=== PATIENT | male | born 1935 | race Caucasian/White ===

== ENCOUNTER → 2017-01-29 | Outpatient (CLI) | payer OTHER ==
[~2017-01-29] MED LIST: ASPI325T39 PO
== END | disposition home or self-care (01) ==
LOC: C.RDSM 15:13
PROVIDERS: ATTEND Physical Medicine & Rehabilitation Sports Medicine
DX: M16.9 Osteoarthritis of hip, unspecified (principal)

== ENCOUNTER 2017-02-21 05:55 | Inpatient (IN) | payer OTHER ==
[2017-01-29 09:59] VITALS: BMI 27.0
--- NOTE | 2017-01-29 10:35 | PAT Medication Instructions ---
Service Date Jan 29, 2017. Current Home Medication List Aspirin (Aspirin Ec), 650 MG PO HS Medication Instructions For Your Scheduled Surgery - Contact your surgeon for instructions for: Aspirin (Aspirin Ec), 650 MG PO HS If you have any questions please call us at [phone] or [phone] or [phone]
[2017-01-29 11:37] LABS: BASO % 0.4 %; BASO ABS # 0.03 K/uL (0-0.2); COMPLETE YES; HEMATOCRIT 45.5 % (42-52); IG% 0.4 %; LYMPH % 31.1 %; LYMPH ABS # 2.63 K/uL (1.2-3.4); MEAN CELL VOLUME 93.8 fL (80-100); MEAN CORPUSCULAR HEMOGLOBIN 31.8 pg (25-34); MEAN CORPUSCULAR HGB CONC 33.8 g/dl (32-36); MEAN PLATELET VOLUME 9.8 fL (7.4-10.4); MONO % 11.7 %; NEUT % 54.4 %; PLATELET COUNT 264 K/uL (130-400); RED BLOOD COUNT 4.85 M/uL (4.7-6.1); WHITE BLOOD COUNT 8.45 K/uL (4.8-10.8)
--- NOTE | 2017-01-29 11:37 | DIAGNOSTIC IMAGING REPORT ---
CHEST PREADMISSION(PA/LAT) HISTORY: 81 years-old Male PAT preadmission exam. No acute chest complaints. COMPARISON: Chest radiograph 10/13/2015 TECHNIQUE: PA and lateral views of the chest FINDINGS: Cardiac silhouette is mildly enlarged. There is atherosclerosis of the aorta. No pneumothorax or large pleural effusion identified. Patchy bibasilar opacities with blunting of the costophrenic angle redemonstrated suggesting atelectasis with pulmonary hyperinflation. Moderate-sized hiatal hernia with partially intrathoracic stomach redemonstrated. Bones are grossly intact. IMPRESSION: 1. Hyperinflation with bibasilar subsegmental atelectasis or scarring redemonstrated. No acute cardiopulmonary process. 2. Moderate sized hiatal hernia with partially intrathoracic stomach. The above report was generated using voice recognition software. It may contain grammatical, syntax or spelling errors. Electronically signed by: Neil Arnold M.D. 01/29/2017 11:36 AM Dictated Date/Time: 01/29/2017 11:34 AM
[2017-01-29 11:50] LABS: BUN/CREATININE RATIO 26.3 (10-20); CALCIUM 8.7 mg/dl (8.5-10.1); CREATININE 1.1 mg/dl (0.60-1.40); POTASSIUM 4.5 mmol/L (3.5-5.1)
[2017-01-29 11:51] LABS: URINE APPEARANCE CLEAR (CLEAR); URINE BILIRUBIN NEG (NEG); URINE COLOR YELLOW; URINE NITRITE NEG (NEG); URINE SPECIFIC GRAVITY 1.023 (1.000-1.030); UROBILINOGEN NEG (NEG)
[2017-01-29 11:52] LABS: MANUAL MICROSCOPIC REQUIRED? NO; REVIEW REQ? NO
--- NOTE | 2017-01-30 16:38 | HISTORY & PHYSICAL EXAMINATION ---
DATE OF ADMISSION: 02/21/2017 CHIEF COMPLAINT: Left hip pain. HISTORY OF PRESENT ILLNESS: This 81-year-old white male presents to the office with complaints of left hip pain that he has had for several years. It has become worse over the last 6 months. He used to be managed with an aspirin every other day. Oral pain medication is no longer controlling his pain level. He has tried activity modification without success. He is quite active and continues to ride a stationary bicycle. No numbness or tingling. X-rays have been obtained. No specific injury that he can recall. He elects to proceed with left total hip arthroplasty in hopes of alleviating his pain. 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 PREVIOUS SURGERIES: Appendectomy, prostatectomy, basal cell skin cancer excision, vasectomy, and colonoscopy. FAMILY HISTORY: Significant for colon cancer and heart disease. SOCIAL HISTORY: The patient is retired. No tobacco use. Occasional ETOH use. . ALLERGIES: KNOWN ALLERGY TO INFLUENZA VACCINE. CURRENT MEDICATIONS: Aspirin 2 tablets daily. REVIEW OF SYSTEMS: Significant for above stated conditions, otherwise unremarkable. PHYSICAL EXAMINATION: GENERAL: Well-developed and well-nourished elderly white male in no acute distress. Sitting on a bed. Alert and oriented. SKIN: Warm and dry with fair turgor. No rashes or lesions. No ecchymosis or erythema. HEENT: Normocephalic and atraumatic. Eyes, PERRLA and EOMI. Nares patent bilaterally without turbinate enlargement. Oropharynx without erythema or exudate. No lesions noted. Uvula midline. Oral mucosa moist. Fair dentition. Dental caps are noted. HEART: RRR. No MGR. LUNGS: Clear to auscultation bilaterally. No crackles, rhonchi or wheezing. Good air movement. ABDOMEN: Bowel sounds present x4, soft and nontender. No organomegaly. No masses. MUSCULOSKELETAL: Left hip has no obvious asymmetry or deformity. He has focal discomfort with palpation over the anterior flexion crease and into the groin. No pain with palpation over the greater trochanter. Hip motion shows flexion to around 100 degrees, limited by pain. External rotation of only 20 degrees. Internal rotation to neutral. All are limited by pain. Strength is 5/5 for resisted hip flexion. Ambulatory with a significantly antalgic gait. Peripheral edema of 1+ bilaterally. NEUROLOGIC: Cranial nerves II through XII are intact. Gross sensation is intact across the lower extremities by soft touch. DATA: Radiographic imaging previously obtained shows severe end-stage DJD of the left hip. Periarticular osteophytes, subchondral sclerosis, and joint space narrowing are present. He also has subchondral cysts. IMPRESSION: Left hip end-stage degenerative joint disease. PLAN: Postoperative prescriptions for Percocet and Coumadin will be provided at discharge from the hospital. Anticipate discharge to home with home health services. Preoperative lab work, EKG, and chest x-ray have been ordered. Medical clearance has been requested from Dr. Davis. Prescription was provided for a walker. Operative procedure, postoperative recovery, physical therapy requirements, and medication use were reviewed.
[~2017-02-21] VITALS: Ht 175.3 cm; Wt 86.0 kg
[2017-02-21] VITALS (10 sets, daily range): BP systolic 110–139; BP diastolic 74–94; PULSE 56–88; TEMP 36.2–36.8; O2SAT 94–99; Ht 175.3 cm; Wt 86.0 kg
[2017-02-21] MEDS ORDERED: LACTATED RINGER'S 1000ML 500 ML IV ONE (06:00)
[2017-02-21] MEDS ORDERED: CEFAZOLIN 2000 MG/60 ML D5W 60 ML IV SCH (06:00)
[2017-02-21] MEDS ORDERED: LACTATED RINGER'S 1000ML 1,000 ML IV SCH (06:00)
[2017-02-21] MEDS ORDERED: ROPIVACAINE 5MG/ML 30 ML 150 MG, BUPIVACAINE/EPINEPHR 0.5% MPF 30 ML, KETOROLAC TROMETH... INFIL SCH ×7 (06:00)
[2017-02-21] MEDS ORDERED: LACTATED RINGER'S 1000ML IV SCH (06:00)
[2017-02-21] MEDS ORDERED: CEFAZOLIN 2000MG IV PUSH 10 ML IV SCH (06:00)
--- NOTE | 2017-02-21 06:20 | History & Physical Bridge Note ---
H&P Re-Evaluation Bridge Note: I have examined the patient, reviewed the History & Physical and in the interval since the performance of the History & Physical I have noted the following changes of clinical significance: consent reviewed.No changes noted
[2017-02-21] MEDS ORDERED: BUPIVACAINE 0.5 % 5 MG/1 ML PF 10ML VIAL ONE (06:32)
[2017-02-21] MEDS: TRANEXAMIC ACID INJ 1,000 MG in SODIUM CHLORIDE 0.9% 100ML 100 ML TOP SCH ×2 (07:02→10:08)
[2017-02-21] MEDS ORDERED: EpHEDrine SULFATE INJ 50 MG/ML AMP IV PRN (08:15)
[2017-02-21] MEDS ORDERED: ONDANSETRON INJ 2 MG/ML 2 ML VIAL IV PRN ×2 (08:15→10:45)
[2017-02-21] MEDS ORDERED: FENTANYL CITRATE INJ 50 MCG/1 ML 2 ML VIAL IV PRN (08:15)
[2017-02-21] MEDS ORDERED: ATROPINE SULFATE 0.1 MG/ML 5ML SYR IV PRN (08:15)
[2017-02-21] MEDS ORDERED: MIDAZOLAM HCL 1 MG/ML 2ML VIAL ONE (08:16)
[2017-02-21] MEDS ORDERED: ORTHO JOINT ANESTHETIC ONE (08:36)
[2017-02-21] MEDS ORDERED: POVIDONE-IODINE OP SOLN 30 ML BTL ONE (08:36)
[2017-02-21] MEDS ORDERED: FENTANYL CITRATE INJ 50 MCG/1 ML 2 ML VIAL ONE (09:21)
[2017-02-21] MEDS ORDERED: LIDOCAINE HCL 2% 2 ML VIAL (20MG/ML) ONE (09:57)
[2017-02-21] MEDS ORDERED: PROPOFOL IV EMULSION 10 MG/ML 20 ML VIAL IV ONE (09:57)
[2017-02-21] MEDS ORDERED: PHENYLEPHRINE 100MCG/ML 5ML SYR ONE (10:04)
--- NOTE | 2017-02-21 10:41 | OPERATIVE REPORT ---
DATE OF OPERATION: 02/21/2017 SURGEON: Rafael Ngo MD. CORPORATE RISK ANALYST: Allison. SECOND CORPORATE RISK ANALYST: Bennett Yates PA-C. PREOPERATIVE DIAGNOSIS: Severe osteoarthritis, left hip with marked deformity of the femoral neck. POSTOPERATIVE DIAGNOSIS: Severe osteoarthritis, left hip with marked deformity of the femoral neck. OPERATION PERFORMED: Noncemented left total hip replacement. PERIOPERATIVE SITUATION: Medically cleared male with intractable hip pain with x-rays revealing end-stage disease, joint space narrowing, marginal osteophytes and severe deformity of his femoral neck. SUMMARY OF IMPLANTS: Size 52 cup acetabular shell sector hole eliminator 6.5 x 25 screw, neutral liner 36 x 52, 6 standard Tri-Lock stem, 36 -2 head. ESTIMATED BLOOD LOSS: 150 mL. FLUIDS: 1600 mL. PERIOPERATIVE SITUATION: Medically cleared male with intractable hip pain with x-rays revealing the above findings. At this point in time wants to proceed with surgical treatment. PROCEDURE: The patient appropriately identified, site verified, consent verified, 2 grams of Ancef confirmed as being given. The left lower extremity was prepped and draped in usual routine fashion with the patient in the right lateral decubitus position. Posterior approach to the left hip was then made. Sharp dissection carried through the skin and blunt dissection down to the fascia. This was then incised under direct vision. The Charnley retractor was then placed with care taken to protect the sciatic nerve. The piriformis and short external rotators were identified and released. The capsule was then T'd and the hip dislocated, it was very stiff. There was marked deformity of the head and the neck. Head and neck was then resected. The leg was then placed anteriorly, retractors placed and osteophytes around the acetabulum were resected and serial reaming carried up to a size 50 and a 50 cup impacted into appropriate anteversion and inclination with excellent rim fit, 6.5 x 25 screw was then placed with excellent purchase. Marginal osteophytes were then removed little bit further. The wound irrigated, the trial liner seated. The femur was then flexed and delivered into the wound, internally rotated and the proximal femur prepared with box spring maker, canal finder, lateralizing rasp, and serial broaching. It was between a 6 and 7 with the femoral neck deformity. The 7 made it very proud and hip reduction very tight, so we went with a 6, which subsided, but got good canal fit and no rotational instability. This then had excellent stability with a -2 head and the leg lengths were equal. The hip was then dislocated. All trial implants were then removed. The wound was irrigated with Betadine, TXA, Pulsavac and then the hole eliminator permanent liner seated, permanent head and neck seated and the hip reduced. It was stable in all planes. Leg lengths were equal. The wound was then closed with #2 Vicryl for the capsule and for short external rotators and for the IT band and the gluteus priti fascia, 2-0 Vicryl for the subcutaneous layer and stainless steel clips for skin. Estimated blood loss was 150 mL. Summary of implants was as noted above. DVT prophylaxis with Coumadin. Continue his aspirin. History of PE and DVT all this was discussed and advanced with a complication list. I attest to the content of the Intraoperative Record and any orders documented therein. Any exception s are noted below.
[2017-02-21] MEDS ORDERED: MoRPHine SULFATE 2 MG/ML CARP IV PRN (10:45)
[2017-02-21] MEDS ORDERED: DiphenhydrAMINE HCL 50 MG/ML VIAL IV PRN (10:45)
[2017-02-21] MEDS ORDERED: METOCLOPRAMIDE HCL INJ 5 MG/ML 2 ML VIAL IV PRN (10:45)
[2017-02-21] MEDS ORDERED: BISACODYL 10 MG SUPP PR PRN (10:45)
[2017-02-21] MEDS ORDERED: OXYCODONE HCL IR 5 MG TAB (IMMEDIATE RELEASE) PO PRN (10:45)
[2017-02-21] MEDS ORDERED: ALUMINUM/MAGNESIUM/SIMETH (MAALOX MAX) 30 ML UDC PO PRN (10:45)
[2017-02-21] MEDS ORDERED: MAGNESIUM HYDROXIDE SUSP 30 ML UDC PO PRN (10:45)
[2017-02-21] MEDS ORDERED: TAMSULOSIN HCL 0.4 MG CAP PO PRN (10:45)
--- NOTE | 2017-02-21 11:07 | DIAGNOSTIC IMAGING REPORT ---
PELVIS 1 OR 2 VIEW ROUTINE CLINICAL HISTORY: Status post total left hip arthroplasty. COMPARISON STUDY: Pelvis radiograph January 29, 2017. FINDINGS: Alignment of the total left hip arthroplasty is anatomic. Acetabular screw is in place. There are skin michell. There are no unexpected radiopaque foreign body. Pelvic surgical clips are noted. IMPRESSION: Expected findings following total left hip arthroplasty. Electronically signed by: Reggie Conway M.D. 02/21/2017 11:05 AM Dictated Date/Time: 02/21/2017 11:04 AM
--- NOTE | 2017-02-21 11:35 | Anesthesiology Progress Note ---
Anesthesia Post Op Note Date & Time Feb 21, 2017 at 11:35 Vital Signs Pain Intensity: 0 Vital Signs Past 12 Hours Date Time Temp Pulse Resp B/P (MAP) Pulse Ox O2 Delivery O2 Flow Rate FiO2 02/21/17 11:05 36 63 19 111/78 (87) 100 Nasal Cannula 2 02/21/17 10:50 70 16 113/68 (78) 100 Oxymask 10 02/21/17 10:40 68 16 112/78 (87) 100 Oxymask 10 02/21/17 10:32 36 76 16 111/78 (84) 100 Oxymask 10 02/21/17 06:36 36.8 88 18 139/94 94 Room Air Notes Mental Status: alert / awake / arousable, participated in evaluation Pt Amnestic to Procedure: Yes Nausea / Vomiting: adequately controlled Pain: adequately controlled Airway Patency, RR, SpO2: stable & adequate BP & HR: stable & adequate Hydration State: stable & adequate Neuraxial Anesthesia: was administered, sensory block is resolving Anesthetic Complications: no major complications apparent
[2017-02-21] MEDS ORDERED: D5W AND 1/2NSS + 20MEQ KCL 1,000 ML IV SCH (12:00)
[2017-02-21] MEDS ORDERED: MoRPHine SULFATE 4 MG/ML 1 ML CARP\\VIAL IV PRN (12:15)
[2017-02-21] MEDS: FERROUS GLUCONATE 324 MG TAB PO SCH ×2 (12:54→17:44)
[2017-02-21] MEDS: KETOROLAC TROMETHAMINE 15 MG/ML VIAL IV. SCH ×2 (12:55→19:38)
--- NOTE | 2017-02-21 13:05 | Progress Note ---
Progress Note Date of Service Feb 21, 2017. Progress Note Postop check status post left total replacement. Patient is doing well sitting up in bed. Tolerated lunch well. Denies chest pain shortness breath fever chills nausea vomiting or headache. Vital signs are stable afebrile. Neurovascular check reveal spinal was wearing off starting to get some active toe flexion and extension. Still weak from the spinal. Postop x-rays look excellent. Assessment doing well continue care pathway Hep-Lock IV. Mobilize with spinal was worn off. Dictated not read.
[2017-02-21] MEDS ORDERED: OXYC-57 PO (13:41)
[2017-02-21] MEDS ORDERED: WARF2TAB PO (13:41)
--- NOTE | 2017-02-21 13:44 | Discharge Instructions ---
Discharge Instructions Date of Service Feb 21, 2017. Admission Reason for Admission: Left Hip Degenerative Joint Disease Discharge Discharge Diagnosis / Problem: Left hip s/p total hip replacement Discharge Goals Goal(s): Decrease discomfort, Improve function, Increase independence Activity Recommendations Activity Limitations: as noted below Lifting Limitations: gradually increase as tolerated Exercise/Sports Limitations: until after follow-up appointment Shower/Bathe: keep incision dry Driving or Machine Use: No driving until cleared by Dr. Ngo Weightbearing Status: Left weightbearing (as tolerated) . Instructions / Follow-Up Instructions / Follow-Up New Medicine: * You will likely be taking one or more of these medicines: 1. Percocet - Take, as directed, when you need it, every four to six hours to control your pain. 2. Coumadin - Thins your blood to lessen the chance of forming a blood clot. The dose of this is different for each person and is based on your blood tests that are done twice a week. * The most common side effects of pain medicine and iron are nausea and constipation. If nausea or constipation is too much of a problem or if you have any questions about your new medicines or doses, call [facility] at . We will try to help you manage these issues. VERY IMPORTANT TO READ AND REVIEW" Blood Clots and Blood Thinning Medicine: * You are given Coumadin during the immediate post-operative period to lessen the risk of blood clots forming in your legs and/or lungs. Coumadin is usually given for six weeks after surgery. * The prescription is for 2 mg tablets. At discharge, you should understand your dose and take it all at the same time every day, preferably after dinner. * You need to get your blood checked 1 - 2 times per week for six weeks, or as directed. * If your dose needs to change, we will call you. Do not take your medication on the day of the blood test until we call you. * If you don't hear from us after your blood draws, keep taking the same dose. Pain: * The immediate post-operative period after hip replacement surgery is often quite painful. * You are given a prescription for pain medicine. You should take it, as directed, when you need it, especially before physical therapy and before going to bed. Pain that interferes with sleep is very common and can last several months. * You will likely need pain medicine for the first two to four weeks. It will not stop all of the pain. The pain will lessen and as you feel better, you may change to milder pain medicine such as Tylenol. * The most common side effects of pain medicine are nausea and constipation, so don't take more than you need. Physical Therapy: * Follow the "Hip Precautions Instructions." * In some cases, the social work supervisor at the hospital will arrange to have a therapist come to your house for the first couple of weeks to help you learn these skills. * You need to practice on your own or with the help of a family member as needed. * When you learn these skills, most of the therapy can be done on your own. Home Exercise: * You were shown a series of exercises in the hospital. Do these exercises three to four times each day including the exercises you were shown in physical therapy. Walking: * Get up and walk several times each day. For the first four weeks, try not to stand or walk for more than one hour at a time. If you do stand or walk for more than one hour, you will not hurt anything, but your leg will likely swell. * As you feel comfortable, you may change from the walker or crutches to a cane and then to independent walking. SELF CARE INSTRUCTIONS AFTER TOTAL HIP REPLACEMENT Until the incision and soft tissues around your hip have healed, there is a possibility that the hip prosthesis could dislocate. A. Observe the following precautions to prevent dislocation: 1. Don't bend your hip greater than 90 degrees. 2. Avoid crossing your legs or ankles while standing or lying. 3. Sit with your feet placed 6 inches apart. 4. When sitting, keep your knees below your hips. Sit on a firm surface, avoid deep, soft chairs and couches. Use an elevated toilet seat in the bathroom. 5. Don't bend over at the waist. Use a long handled shoehorn and a sock aid to help you put on your shoes and socks. A etl consultant can help you pick up man objects that are too high or too low to reach. 6. Keep car riding to a minimum for at least one month after surgery. B. Your balance may be shaky for a while. Use crutches or a walker until directed by your doctor. C. Use hand rails when walking on stairs. D. Wear low heeled shoes with non-slip soles. E. Be sure that your floors are free of things that could trip you - throw rugs , electrical cords, small objects. Avoid wet and waxed floors, especially with crutches and canes. F. Try to walk several times a day with rest periods between. G. Continue with all the exercises taught to you in the hospital. Again, make walking a part of your daily routine. VERY IMPORTANT TO READ AND REVIEW A. Take Coumadin, or Lovenox (blood thinning medications) as directed by your doctor. If you are on Coumadin, have a pro-time (blood test) drawn according to your doctor's instructions. This will tell the doctor how well the Coumadin is thinning your blood. B. There are a few signs you need to watch for after you are home. If you notice any of the followin. Increased severe hip pain. Some pain is expected especially when you exercise. 2. Increased swelling in your leg or knee; pain or swelling of the calf muscle in either lower leg. 3. Any fluid drainage from the incision. 4. Shortness of breath or chest pain. TEDs/Elastic Stockings: * The white elastic stockings help limit swelling and prevent blood clots from forming in your legs. The more you wear them, the more they work. * Wear them for six weeks. Prevention of Infection: * Take antibiotics one hour before any dental cleaning, dental work, urological procedure, gastrointestinal procedure or any invasive surgery in order to prevent your new joint from getting infected. * You may get the antibiotics from the doctor performing the procedure or we will call in a prescription to the pharmacy of your choice. Call the office for a prescription at least 2 days prior to your appointment. Things to Watch For: * Drainage from the incision site that occurs more than one week after your surgery. * Severely increased leg pain or swelling. * Increased redness at the incision site. * Fever above 101 degrees Fahrenheit. * Unusual chest pain or shortness of breath. * Unusual pain or burning with urination. Current Hospital Diet Patient's current hospital diet: Regular Diet Discharge Diet Recommended Diet: Regular Diet Procedures Procedures Performed: Left Total Hip Arthroplasty--Uncemented Pending Studies Studies pending at discharge: no Medical Emergencies . Who to Call and When: Medical Emergencies: If at any time you feel your situation is an emergency, please call 911 immediately. . Non-Emergent Contact Non-Emergency issues call your: Primary Care Provider, Surgeon Call Non-Emergent contact if: temperature is above 101, wound has increased drainage, wound has increased redness, wound has increased pain, you have any medication questions . "Provider Documentation" section prepared by Bennett Yates PA-C. . VTE Core Measure Inpt VTE Proph given/why not?: Warfarin (Coumadin), Raquel Terry, SCD's [place] Drug Monitoring Program Search Results: no issues identified
[2017-02-21] MEDS: ACETAMINOPHEN IV 1,000 MG in EMPTY BAG 0 ML IV SCH ×2 (14:20→21:53)
[2017-02-21] MEDS ORDERED: WARFARIN SOD 5 MG TAB PO SCH (16:00)
--- NOTE | 2017-02-21 17:42 | Progress Note ---
Progress Note Date of Service Feb 21, 2017. Progress Note Patient is sitting up doing well; neurovascular exam femoral/ sciatic nerve is completely normal; his IVs hep locked. He is happy. His pain is well-managed.
[2017-02-21] MEDS: CEFAZOLIN 2000MG IV PUSH 10 ML IV SCH (17:45)
[2017-02-21] MEDS: DOCUSATE SODIUM 100 MG CAP PO SCH (20:48)
[2017-02-22] MEDS: CEFAZOLIN 2000MG IV PUSH 10 ML IV SCH (01:56)
[2017-02-22] MEDS: KETOROLAC TROMETHAMINE 15 MG/ML VIAL IV. SCH ×2 (02:00→05:59)
[2017-02-22 03:09] VITALS: BP 129/88; PULSE 82; TEMP 36.8; O2SAT 96
[2017-02-22] MEDS: ACETAMINOPHEN IV 1,000 MG in EMPTY BAG 0 ML IV SCH (05:23)
[2017-02-22 05:42] LABS: BASO % 0.1 %; BASO ABS # 0.01 K/uL (0-0.2); COMPLETE YES; EOS % 0.9 %; HEMATOCRIT 39.1 % (42-52); IG% 0.2 %; MEAN CELL VOLUME 91.4 fL (80-100); MEAN CORPUSCULAR HEMOGLOBIN 31.1 pg (25-34); MEAN PLATELET VOLUME 9.4 fL (7.4-10.4); NEUT % 67.8 %; PLATELET COUNT 180 K/uL (130-400); RED BLOOD COUNT 4.28 M/uL (4.7-6.1); WHITE BLOOD COUNT 8.51 K/uL (4.8-10.8)
[2017-02-22 05:51] LABS: INR 1.1 (0.9-1.1); PROTHROMBIN TIME (PATIENT) 11.4 SECONDS (9.0-12.0)
[2017-02-22 06:15] LABS: BUN/CREATININE RATIO 19.7 (10-20); CALCIUM 7.8 mg/dl (8.5-10.1); CREATININE 0.99 mg/dl (0.60-1.40); POTASSIUM 4.1 mmol/L (3.5-5.1)
[2017-02-22] MEDS ORDERED: DEXAMETHASONE INJ 10 MG in SYRINGE 0 ML IV SCH (07:30)
[2017-02-22 07:40] VITALS: BP 137/96; PULSE 94; TEMP 36.7; O2SAT 94
--- NOTE | 2017-02-22 08:20 | Orthopedic Progress Note ---
Orthopedic Progress Note Date of Service Feb 22, 2017. Subjective Post OP Day: 1 Reports: feeling well, pain controlled w PO medications, Denies: complaints, chest pain, SOB, nausea / vomiting, light headedness, calf pain Objective calves soft nontender, N/V intact, hip located, capillary refill less than 2 sec., dressing C/D/I, incision C/D/I, A&O x3, toes mobile Date Time Temp Pulse Resp B/P (MAP) Pulse Ox O2 Delivery O2 Flow Rate FiO2 02/22/17 07:40 36.7 94 20 137/96 (110) 94 Room Air 02/22/17 03:09 36.8 82 16 129/88 (102) 96 Room Air 02/21/17 23:00 Room Air 02/21/17 22:58 36.8 76 16 126/78 (94) 95 Room Air 02/21/17 19:00 36.5 87 18 132/83 (99) 97 Room Air 02/21/17 16:05 95 Room Air 02/21/17 15:00 36.3 60 18 110/74 (86) 97 2.0 02/21/17 14:40 36.4 60 16 128/83 (98) 97 Nasal Cannula 2.0 02/21/17 13:38 63 16 135/83 (100) 99 2.0 02/21/17 12:45 36.7 78 22 137/82 (100) 99 Nasal Cannula 2.0 02/21/17 12:10 36.2 56 18 135/79 (97) 98 Nasal Cannula 2.0 02/21/17 11:40 36.4 69 16 137/77 (97) 96 Nasal Cannula 2.0 02/21/17 11:40 96 Nasal Cannula 2.0 02/21/17 11:40 96 Nasal Cannula 2.0 02/21/17 11:05 36 63 19 111/78 (87) 100 Nasal Cannula 2 02/21/17 10:50 70 16 113/68 (78) 100 Oxymask 10 02/21/17 10:40 68 16 112/78 (87) 100 Oxymask 10 02/21/17 10:32 36 76 16 111/78 (84) 100 Oxymask 10 Laboratory Results 24 Hours: Test 02/22/17 05:29 White Blood Count 8.51 K/uL Red Blood Count 4.28 M/uL Hemoglobin 13.3 g/dL Hematocrit 39.1 % Mean Corpuscular Volume 91.4 fL Mean Corpuscular Hemoglobin 31.1 pg Mean Corpuscular Hemoglobin Concent 34.0 g/dl Platelet Count 180 K/uL Mean Platelet Volume 9.4 fL Neutrophils (%) (Auto) 67.8 % Lymphocytes (%) (Auto) 20.0 % Monocytes (%) (Auto) 11.0 % Eosinophils (%) (Auto) 0.9 % Basophils (%) (Auto) 0.1 % Neutrophils # (Auto) 5.76 K/uL Lymphocytes # (Auto) 1.70 K/uL Monocytes # (Auto) 0.94 K/uL Eosinophils # (Auto) 0.08 K/uL Basophils # (Auto) 0.01 K/uL Prothromb Time International Ratio 1.1 Prothrombin Time 11.4 SECONDS Assessment & Plan Assessment: s/p left CAIT post op day # 1 doing well Plan: - WBAT - PT/OT - Total hip precautions: abbduction pillow while in bed - post-op abx compete - DVT prophylaxis: coumadin, NORMA, SCDs - INR 1.1: home with 5 mg coumadin: recheck Sunday - Diet: Regular - incisional wound vac applied - Oral pain medication - home later today Inhouse Planning Pain Management: Percocet, Toradol DVT Prophylaxis: TEDs, SCDs, Coumadin Discharge Planning Discharge Planning: home with home health DVT Prophylaxis: TEDs, SCDs, Coumadin
[2017-02-22] MEDS: DOCUSATE SODIUM 100 MG CAP PO SCH (08:32)
[2017-02-22] MEDS: FERROUS GLUCONATE 324 MG TAB PO SCH ×2 (08:33→13:32)
[2017-02-22] MEDS ORDERED: PANTOprazole SOD 40 MG TAB PO SCH (09:00)
[2017-02-22] MEDS ORDERED: MULTIVITAMIN TAB PO SCH (09:00)
--- NOTE | 2017-02-22 09:41 | Discharge Summary ---
Orthopedic Discharge Summary Admission Date/Reason Feb 21, 2017 at 06:20 Left Hip Degenerative Joint Disease. Discharge Date/Disposition Feb 22, 2017 Home with services Diagnosis Principal Diagnosis: Left hip DJD Secondary Diagnoses/Problems: s/p Left CAIT Procedure(s) Performed s/p Left total hip arthroplasty by Dr. Ngo 02/21/17 Medication Reconciliation New Medications: Oxycodone/Acetaminophen 5MG/325MG (Percocet 5MG/325MG) Tab 1-2 TABLETS PO Q4H PRN for Pain, #30 TAB Warfarin Sodium (Coumadin) 2 Mg Tab 4 MG PO DAILY, #60 TAB Discontinued Medications: Aspirin (Aspirin Ec) 325 Mg Tab 650 MG PO HS Admission Physical Exam As per Admitting History & Physical. Hospital Course 81 y/o male with continued left hip pain that failed conservative management, surgery recommended, consents obtained. The patient tolerated the procedure well and his activity level and surgical wound were stable, incisional wound vac applied post-op day 1, and was able to be discharged home with home health 02/22/17. Discharge Instructions Please refer to the electronic Patient Visit Report (Discharge Instructions) for additional information.
[2017-02-22 11:38] VITALS: BP 105/54; PULSE 102; TEMP 36.5; O2SAT 95
[2017-02-22 11:44] VITALS: BP 111/68; PULSE 118; O2SAT 94
--- NOTE | 2017-02-22 12:50 | Anesthesiology Progress Note ---
Anesthesia Post Op Note Date & Time Feb 22, 2017 at 12:49 Vital Signs Pain Intensity: 0.0 Vital Signs Past 12 Hours Date Time Temp Pulse Resp B/P (MAP) Pulse Ox O2 Delivery O2 Flow Rate FiO2 02/22/17 11:44 118 94 02/22/17 11:38 36.5 102 20 105/54 (71) 95 Room Air 02/22/17 08:30 Room Air 02/22/17 07:40 36.7 94 20 137/96 (110) 94 Room Air 02/22/17 03:09 36.8 82 16 129/88 (102) 96 Room Air Notes Mental Status: alert / awake / arousable, participated in evaluation Pt Amnestic to Procedure: Yes Nausea / Vomiting: adequately controlled Pain: adequately controlled Airway Patency, RR, SpO2: stable & adequate BP & HR: stable & adequate Hydration State: stable & adequate Neuraxial Anesthesia: was administered, sensory block resolved Anesthetic Complications: no major complications apparent
[2017-02-22] MEDS ORDERED: ACETAMINOPHEN 325 MG TAB PO PRN (14:00)
[2017-02-22 15:28] VITALS: BP 107/71; PULSE 109; TEMP 36.5; O2SAT 96
[2017-02-22] MEDS ORDERED: WARFARIN SOD 5 MG TAB PO SCH (16:00)
[2017-02-22 16:12] VITALS: BP 107/71; PULSE 109; TEMP 36.5; O2SAT 96
== END 2017-02-22 16:55 | disposition home health service (06) | DRG 470 ==
LOC: C.ACU 05:55 → C.MSN 06:20 → ENRESERV 11:01
PROVIDERS: ADMIT Physical Medicine & Rehabilitation Sports Medicine; ATTEND Physical Medicine & Rehabilitation Sports Medicine
PROC: 0SRB0JA Replacement of Left Hip Joint with Synthetic Substitute, Uncemented, Open Approach (ICD-10-PCS; principal; 2017-02-21 08:45)
DX: M16.12 Unilateral primary osteoarthritis, left hip (principal); M21.852 Other specified acquired deformities of left thigh; Z51.81 Encounter for therapeutic drug level monitoring; Z79.82 Long term (current) use of aspirin; Z86.718 Personal history of other venous thrombosis and embolism; Z86.711 Personal history of pulmonary embolism; Z85.46 Personal history of malignant neoplasm of prostate; Z85.828 Personal history of other malignant neoplasm of skin; Z86.010 Personal history of colon polyps; Z80.0 Family history of malignant neoplasm of digestive organs; Z82.49 Family history of ischemic heart disease and other diseases of the circulatory system

== ENCOUNTER → 2017-02-23 | Outpatient (CLI) | payer OTHER ==
[~2017-02-23] MED LIST changes: -ASPI325T39 PO; +OXYC-57 PO; +WARF2TAB PO
[2017-02-23 15:04] LABS: INR 1.2 (0.9-1.1); PROTHROMBIN TIME (PATIENT) 12.6 SECONDS (9.0-12.0)
--- NOTE | 2017-03-22 13:08 | EDITING REQUIRED CODING QUERY ---
Valid Physician Order Needed A valid physician order must be submitted in order to properly bill for the service(s) provided, including date of service(s), valid diagnosis, and physician signature. If these tests are done on a recurring basis the original physican order must be submitted in order to code and bill for the service(s) provided. Please fax us the original, signed physician order so that we may expedite billing to [phone] 02/23/2017 Prothrombin Time Thank you Winnie Crenshaw [facility] Information Management
== END | disposition home or self-care (01) ==
LOC: C.LABSPEC 14:48
PROVIDERS: ATTEND Physical Medicine & Rehabilitation Sports Medicine
DX: Z86.711 Personal history of pulmonary embolism (principal); Z86.718 Personal history of other venous thrombosis and embolism; Z85.46 Personal history of malignant neoplasm of prostate

== ENCOUNTER → 2017-03-01 | Outpatient (CLI) | payer OTHER ==
[2017-03-01 09:32] LABS: PROTHROMBIN TIME (PATIENT) 22.5 SECONDS (9.0-12.0)
== END | disposition home or self-care (01) ==
LOC: C.LABSPEC 09:11
PROVIDERS: ATTEND Physical Medicine & Rehabilitation Sports Medicine
DX: Z51.81 Encounter for therapeutic drug level monitoring (principal); Z79.01 Long term (current) use of anticoagulants

== ENCOUNTER → 2017-04-23 | Outpatient (CLI) | payer OTHER | END | disposition home or self-care (01) | LOC: C.RDSM 13:08 | PROVIDERS: ATTEND Physical Medicine & Rehabilitation Sports Medicine | DX: M16.12 Unilateral primary osteoarthritis, left hip (principal) ==

== ENCOUNTER → 2017-07-04 | Outpatient (CLI) | payer OTHER ==
--- NOTE | 2017-07-04 14:17 | DIAGNOSTIC IMAGING REPORT ---
R KNEE 4 OR MORE CLINICAL HISTORY: 81 years-old Male presenting with RIGHT KNEE PAIN. TECHNIQUE: Bilateral frontal view of the knees in standing position as well as sunrise, tunnel, and lateral views of the right knee were obtained. COMPARISON: 04/06/2016. FINDINGS: Redemonstration of severe joint space loss in the lateral compartment of the right knee with osteophytosis, subchondral sclerosis, and suggestion of subchondral cystic change. This is similar to the prior exam. The medial and patellofemoral compartments are largely spared. Small knee joint effusion suggested. Osteophyte at the medial aspect of the medial femoral condyle noted. No acute fracture. Slight valgus angulation at the knee. The left knee is also unchanged with mild joint space loss in the medial compartment and trace osteophytosis medially. IMPRESSION: 1. 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 2. Mild degenerative changes of the medial compartment of the left knee. Electronically signed by: Samuel Hauser M.D. 07/04/2017 2:16 PM Dictated Date/Time: 07/04/2017 2:14 PM
== END | disposition home or self-care (01) ==
LOC: C.RDSM 20:11
PROVIDERS: ATTEND Physician Assistant
DX: M25.561 Pain in right knee (principal)